=== PATIENT | male | born 1975 | race Two or more races ===

== ENCOUNTER → 2020-07-07 | Outpatient (CLI) | payer OTHER | END | disposition home or self-care (01) | LOC: LAB 16:53 | PROVIDERS: ATTEND Physician Assistant | DX: Z20.828 Contact with and (suspected) exposure to other viral communicable diseases (principal) | CPT/HCPCS: C9803; U0003 ==

== ENCOUNTER 2023-06-04 22:04 | Emergency (ER) | payer OTHER ==
[~2023-06-04] VITALS: Ht 167.6 cm; Wt 104.5 kg
[2023-06-05] MEDS ORDERED: PRED20TA2 PO (00:06)
[2023-06-05] MEDS ORDERED: AMOX875T4 PO (00:06)
[2023-06-05 00:15] VITALS: BP 151/99; PULSE 89; RESP 15; TEMP 98; O2SAT 95
[2023-06-05] MEDS ORDERED: cefTRIAXone SOD 1,000 MG VL IM ONE (00:15)
[2023-06-05] MEDS ORDERED: DexAMETHasone SOD PHOS 10MG/1ML VIAL INJ IM ONE (00:15)
== END 2023-06-05 00:36 | disposition home or self-care (01) ==
LOC: ER 22:04
DX: J06.9 Acute upper respiratory infection, unspecified (principal)
CPT/HCPCS: 71045; 96372; 99284; J0696; J1100

== ENCOUNTER 2023-10-30 20:40 | Emergency (ER) | payer OTHER ==
[~2023-10-30] VITALS: Ht 167.6 cm; Wt 104.0 kg
[2023-10-30 20:40] VITALS: BP 151/100; PULSE 103; RESP 20; O2SAT 99
[~2023-10-30 20:40] MED LIST: AMOX875T4 PO; PRED20TA2 PO
[2023-10-30] MEDS: FAMOTIDINE (10MG/ML) 2ML VL IV ONE (21:12)
[2023-10-30] MEDS: methylPREDNISolone SOD SUCC 125 MG/2 ML VL IV ONE (21:12)
== END 2023-10-30 23:13 | disposition left against medical advice (07) ==
LOC: ER 20:40
DX: T78.49XA Other allergy, initial encounter (principal); Z53.21 Procedure and treatment not carried out due to patient leaving prior to being seen by health care provider; X58.XXXA Exposure to other specified factors, initial encounter
CPT/HCPCS: 96374; 96375; 99281; J2930; J3490

== ENCOUNTER 2023-11-18 21:08 | Emergency (ER) | payer OTHER ==
[~2023-11-18] VITALS: Ht 167.6 cm; Wt 104.5 kg
[2023-11-18] MEDS: diphenhdrAMINE HCL 50 MG/1 ML VL IV ONE (21:47)
[2023-11-18] MEDS: FAMOTIDINE (10MG/ML) 2ML VL IV ONE (21:48)
[2023-11-18] MEDS: DexAMETHasone SOD PHOS 10MG/1ML VIAL INJ IV ONE (21:48)
[2023-11-18] MEDS: EPINEPHrine HCL 1 MG/1 ML AMP IM ONE (21:50)
[2023-11-18] MEDS ORDERED: EPIN0.1I11 IJ (23:28)
[2023-11-18 23:43] VITALS: BP 126/79; PULSE 96; RESP 16; TEMP 98.7; O2SAT 95
== END 2023-11-18 23:47 | disposition home or self-care (01) ==
LOC: ER 21:08
DX: T78.49XA Other allergy, initial encounter (principal); Z79.899 Other long term (current) drug therapy; X58.XXXA Exposure to other specified factors, initial encounter
CPT/HCPCS: 96372; 96374; 96375; 99284; J0171; J1100; J1200; J3490

== ENCOUNTER 2023-11-21 19:28 | Emergency (ER) | payer OTHER ==
[~2023-11-21] VITALS: Ht 167.6 cm; Wt 109.4 kg
[~2023-11-21 19:28] MED LIST changes: +EPIN0.1I11 IJ
[2023-11-21 20:23] LABS: Basophils # (auto) 0.1 10 ^3/uL (0-0.2); Eosinophils # (auto) 0.1 10 ^3/uL (0-0.8); Eosinophils % (auto) 1.3 % (0.0-7.0); Hematocrit 46.3 % (41.0-53.0); Hemoglobin 15.8 g/dL (13.5-17.5); Lymphocytes % (auto) 28.1 % (10.0-50.0); Mean Corpuscular Hemoglobin 28.6 pg (28.0-32.0); Mean Corpuscular Hgb Conc. 34.1 g/dL (32.0-36.0); Mean Corpuscular Volume 83.8 fL (80.0-100.0); Monocytes # (auto) 0.6 10 ^3/uL (0-1.3); Monocytes % (auto) 8.7 % (0.0-12.0); Neutrophils # (auto) 4.3 10 ^3/uL (1.6-8.6); Neutrophils % (auto) 60.9 % (37.0-80.0); Nucleated Red Blood Cells % 0.1 %; Red Blood Cells 5.52 10^6/uL (4.5-5.90); Red Cell Distribution Width 14.1 % (11.8-14.3); White Blood Cell 7.1 10^3/uL (4.4-10.8)
[2023-11-21 20:40] LABS: Alanine Aminotransferase 33 U/L (7-40); Albumin 4.2 g/dL (3.2-4.8); Alkaline Phosphatase 87 U/L (46-116); Anion Gap 6 (5-15); Aspartate Aminotransferase 15 U/L (13-40); BUN/Creatinine Ratio 12.4 (10.0-20.0); Bilirubin, Total 0.5 mg/dL (0.2-1.0); Blood Urea Nitrogen 12 mg/dL (9-23); Calcium 9.3 mg/dL (8.7-10.4); Carbon Dioxide 27 mmol/L (20-30); Chloride 105 mmol/L (98-107); Glucose 173 mg/dL (74-106); Lipase 36 U/L (12-53); Potassium 3.5 mmol/L (3.5-5.1); Sodium 138 mmol/L (136-145); Total Protein 6.6 g/dL (5.7-8.2)
[2023-11-22 00:20] VITALS: BP 152/93; PULSE 81; RESP 16; TEMP 98.2; O2SAT 97
== END 2023-11-22 00:24 | disposition home or self-care (01) ==
LOC: ER 19:28
DX: K92.2 Gastrointestinal hemorrhage, unspecified (principal); Z79.2 Long term (current) use of antibiotics; Z79.899 Other long term (current) drug therapy; Z91.018 Allergy to other foods
CPT/HCPCS: 36415; 74176; 80053; 83690; 85025; 86850; 86900; 86901

== ENCOUNTER 2024-01-05 16:45 | Emergency (ER) | payer OTHER ==
[~2024-01-05] VITALS: Ht 167.6 cm; Wt 90.0 kg
[2024-01-05 17:50] LABS: Basophils # (auto) 0.1 10 ^3/uL (0-0.2); Basophils % (auto) 1.3 % (0.0-2.0); Eosinophils # (auto) 0.1 10 ^3/uL (0-0.8); Eosinophils % (auto) 2.6 % (0.0-7.0); Hematocrit 43.8 % (41.0-53.0); Hemoglobin 15.1 g/dL (13.5-17.5); Lymphocytes # (auto) 1.3 10 ^3/uL (0.4-5.4); Mean Corpuscular Hgb Conc. 34.5 g/dL (32.0-36.0); Mean Corpuscular Volume 84.2 fL (80.0-100.0); Monocytes # (auto) 0.4 10 ^3/uL (0-1.3); Monocytes % (auto) 9.5 % (0.0-12.0); Neutrophils # (auto) 2.4 10 ^3/uL (1.6-8.6); Neutrophils % (auto) 55.6 % (37.0-80.0); Nucleated Red Blood Cells % 0.2 %; Red Cell Distribution Width 13.9 % (11.8-14.3); White Blood Cell 4.3 10^3/uL (4.4-10.8)
[2024-01-05 18:06] VITALS: PULSE 84; RESP 16; O2SAT 98
[2024-01-05] MEDS: NITROGLYCERIN 0.4 MG SL TAB SL ONE (18:07)
[2024-01-05 18:17] LABS: Alanine Aminotransferase 33 U/L (7-40); Albumin 4.3 g/dL (3.2-4.8); Alkaline Phosphatase 85 U/L (46-116); Anion Gap 6 (5-15); Aspartate Aminotransferase 15 U/L (13-40); BUN/Creatinine Ratio 12.3 (10.0-20.0); Blood Urea Nitrogen 10 mg/dL (9-23); Calcium 9.6 mg/dL (8.5-10.1); Carbon Dioxide 29 mmol/L (20-30); Chloride 107 mmol/L (98-107); Glucose 101 mg/dL (74-106); Potassium 3.6 mmol/L (3.5-5.1); Sodium 142 mmol/L (136-145)
[2024-01-05 18:18] LABS: Bilirubin, Total 0.5 mg/dL (0.2-1.0); Total Protein 6.5 g/dL (5.7-8.2)
[2024-01-05 18:31] LABS: Urine Bacteria None Seen /hpf (None Seen)
[2024-01-05 18:44] LABS: Urine Blood Negative /uL (Negative); Urine Clarity Clear (Clear); Urine Color Light-Yellow (Yellow); Urine Mucus FEW (None Seen); Urine Protein, UAD Negative (Negative); Urine Specific Gravity 1.016 (1.001-1.035); Urine Urobilinogen Normal (Negative); Urine WBC 1 /hpf (0 - 3); Urine pH 5.5 (5.0-9.0)
[2024-01-05 19:27] VITALS: BP 128/85; PULSE 77; RESP 16; O2SAT 99
[2024-01-05] MEDS ORDERED: ACET500T58 PO (19:33)
[2024-01-05] MEDS ORDERED: IBUP-1455 PO (19:33)
[2024-01-05] MEDS: KETOROLAC TROMETH 60MG/2ML VIAL IM ONE (19:40)
== END 2024-01-05 19:46 | disposition home or self-care (01) ==
LOC: ER 16:45 → EEVIPCON 16:45 → ER 19:46
DX: R07.89 Other chest pain (principal); E66.01 Morbid (severe) obesity due to excess calories; Z68.32 Body mass index [BMI] 32.0-32.9, adult; Z79.899 Other long term (current) drug therapy
CPT/HCPCS: 36415; 71045; 80053; 81001; 83880; 84484; 85025; 85379; 93005; 96372; 99285; J1885

== ENCOUNTER 2024-02-20 16:28 | Emergency (ER) | payer OTHER ==
[~2024-02-20] VITALS: Ht 167.6 cm; Wt 96.3 kg
[~2024-02-20 16:28] MED LIST changes: +ACET500T58 PO; +IBUP-1455 PO
[2024-02-20] MEDS: diphenhdrAMINE HCL 50 MG/1 ML VL IV ONE (17:32)
[2024-02-20] MEDS: DexAMETHasone SOD PHOS 10MG/1ML VIAL INJ IV ONE (17:32)
[2024-02-20] MEDS: EPINEPHrine HCL 1 MG/1 ML AMP SC ONE (17:33)
[2024-02-20 18:17] VITALS: PULSE 81; RESP 16; O2SAT 94
[2024-02-21] MEDS ORDERED: DIPH25CA66 PO (00:49)
[2024-02-21] MEDS: DexAMETHasone SOD PHOS 4 MG/1ML SDV INJ IV ONE (01:07)
[2024-02-21 01:55] VITALS: BP 112/79; PULSE 68; RESP 16; O2SAT 96
== END 2024-02-21 01:29 | disposition home or self-care (01) ==
LOC: ER 16:28
DX: T78.40XA Allergy, unspecified, initial encounter (principal); Z79.1 Long term (current) use of non-steroidal anti-inflammatories (NSAID); Z79.52 Long term (current) use of systemic steroids; Z79.899 Other long term (current) drug therapy; Z91.010 Allergy to peanuts; X58.XXXA Exposure to other specified factors, initial encounter
CPT/HCPCS: 96372; 96374; 96375; 96376; 99284; J0171; J1100; J1200

== ENCOUNTER 2024-06-14 11:04 | Emergency (ER) | payer OTHER ==
[~2024-06-14] VITALS: Ht 167.6 cm; Wt 94.4 kg
[~2024-06-14 11:04] MED LIST changes: +DIPH25CA66 PO
--- NOTE | 2024-06-14 11:52 | ED.PDOC ---
GI ASSESSMENT HPI Comments 48 y.o male presents to the ED for a chief complaint of diffused abdominal pain associated with nausea, dry heaving, and lightheadedness. Patient reports pain is localized towards the upper region of his abdomen, radiates across and to the right side which is where the pain is worse. Pain has been going on for about 4- 5 days ago, was intermittent up until today which progressively worsen and became constant, rating a 8/10 on the pain scale. Patient states he had GI bleed earlier this year, had a colonoscopy done at [facility] and had a polyp removed but was told pain cause was undetermined. Patient was placed on Protonix and had been pain free for the past 3 months up until now, has loose stools but no diarrhea, fever, chills, bloody stool, vomiting, or urinary symptoms. Patient is currently lightheaded due to increased pain now. Chief Complaint: Abdominal Pain Time Seen by MD: 11:43 Primary Care Provider: [facility] Reviewed Notes: Nurses Notes, Medications, Allergies Allergies: Uncoded Allergies: nuts (Allergy, Severe, 02/21/24) Home Meds Active Scripts Diphenhydramine Hcl (Benadryl Allergy) 25 Mg Cap, 2 CAP PO Q6HPRN, #30 CAP 0 Refills Prov:ELZBIETA JENKINS 02/21/24 Prednisone (Prednisone) 20 Mg Tab, 20 MG PO BID for 5 Days, #10 TAB 0 Refills Prov:ELZBIETA JENKINS 02/21/24 Acetaminophen (Acetaminophen) 500 Mg Tab, 500 MG PO Q4HP PRN, #20 TAB Prov:YELENA BUSTILLO PAC 01/05/24 Ibuprofen Micronized (Ibuprofen) 800 Mg Tab, 800 MG PO Q8HP PRN, #20 TAB Prov:YELENA BUSTILLO PAC 01/05/24 Epinephrine (Anaphylaxis) (Auvi-Q) 0.1 Mg/0.1 Ml Inj, 0.1 MG IJ O PRN for 1 Day, #1 INJ Prov:ROSALINDA GARZA DO 11/18/23 Prednisone (Prednisone) 20 Mg Tab, 20 MG PO BID for 5 Days, #10 TAB 0 Refills Prov:ELZBIETA JENKINS 06/05/23 Amoxicillin & Pot Clavulanate (Amoxicillin/Potassium Cla) 875 Mg Tab, 1 TAB PO BID for 7 Days, #14 TAB 0 Refills Prov:ELZBIETA JENKINS 06/05/23 Information Source: Patient Mode of Arrival: Ambulatory Timing: Days (4-5) Duration: Since onset Quality: Sharp Vomitus: None Stool: Loose Severity: Moderate Recent: None Recent Hx of: None Pain Location: Diffuse, Epigastric, RUQ, RLQ Modifying Factors: Nothing Associated sign and symptoms: Nausea, Abdominal Pain Past Medical History Past Medical History (Other): Polyp and diveticulosis Surgical History (Other): colonoscopy Family History Family History: Unknown Social History Smoker: Non-Smoker Alcohol: Occasionally Drugs: Denies Drug Use Lives In: Home Constitutional: denies: chills, diaphoresis, fatigue, fever, malaise, sweats, weakness, others EENTM: denies: blurred vision, double vision, ear bleeding, ear discharge, ear drainage, ear pain, ear ringing, eye pain, eye redness, hearing loss, mouth pain, mouth swelling, nasal discharge, nose bleeding, nose congestion, nose pain, photophobia, tearing, throat pain, throat swelling, voice changes, others Respiratory: denies: cough, hemoptysis, orthopnea, SOB at rest, shortness of breath, SOB with excertion, stridor, wheezing, others Cardiovascular: reports: lightheadedness; denies: chest pain, dizzy spells, diaphoresis, Dyspnea on exertion, edema, irregular heart beat, left arm pain, palpitations, PND, syncope, others Gastrointestinal: reports: abdominal pain, nausea; denies: abdomen distended, blood streaked bowels, constipated, diarrhea, dysphagia, difficulty swallowing, hematemesis, melena, poor appetite, poor fluid intake, rectal bleeding, rectal pain, vomiting, others Genitourinary: denies: burning, dysuria, flank pain, frequency, hematuria, incontinence, penile discharge, penile sore, pain, testicle pain, testicle swelling, urgency, others Neurological: denies: dizziness, fainting, headache, left sided numbness, left sided weakness, numbness, paresthesia, pre-existing deficit, right sided numbness, right sided weakness, seizure, speech problems, tingling, tremors, weakness, others Musculoskeletal: denies: back pain, gout, joint pain, joint swelling, muscle pain, muscle stiffness, neck pain, others Integumetry: denies: bruises, change in color, change in hair/nails, dryness, laceration, lesions, lumps, rash, wounds, others Allergic/Immunocompromised: denies: Difficulty Healing, Frequent Infections, Hives, Itching, others Hematologic/Lymphatic: denies: anemia, blood clots, easy bleeding, easy bruising, swollen glands, others Endocrine: denies: excessive hunger, excessive sweating, excessive thirst, excessive urination, flushing, intolerance to cold, intolerance to heat, unexplained weight gain, unexplained weight loss, others Psychiatric: denies: anxiety, bipolar disorder, depression, hopeless, panic disorder, schizophrenia, sleepless, suicidal, others All Other Systems: Reviewed and Negative Physical Exam General Appearance: Moderate Distress HEENT: Normal ENT Inspection, Pharynx Normal, TMs Normal Neck: Full Range of Motion, Non-Tender, Normal, Normal Inspection Respiratory: Chest Non-Tender, Lungs Clear, No Accessory Muscle Use, No Respiratory Distress, Normal Breath Sounds Cardiovascular: No Edema, No JVD, No Murmur, No Gallop, Normal Peripheral Pulses, Regular Rate/Rhythm Breast Exam: Deferred Gastrointestinal: Diffuse, No Organomegaly, No Pulsatile Mass, Normal Bowel Sounds, Soft, Tenderness Genitalia: Deferred Pelvic: Deferred Rectal: Deferred Extremities: No calf tenderness, Normal capillary refill, Normal inspection, Normal range of motion, Non-tender, No pedal edema Musculoskeletal : Apperance: Normal Neurologic: Alert, dough mixer helper II-XII nml as Tested, Motor Weakness, Normal Affect, Normal Mood, No Sensory Deficits Cerebellar Function: Normal Reflexes: Normal Skin: Dry, Normal Color, Warm Lymphatic: No Adenopathy Was a procedure done? Was a procedure done?: No GI differential Dx Differential Diagnosis: Diverticular disease, Gastritis/PUD, Gastroenteritis, Inflammatory BD, Ischemic Bowel, Anemia, Esophageal Varicies X-Ray, Labs, Meds, VS Vital Signs Date Time Temp Pulse Resp B/P (MAP) Pulse Ox O2 Delivery O2 Flow Rate FiO2 06/14/24 12:16 75 17 129/81 06/14/24 11:42 103 18 99 Room Air 06/14/24 11:42 104 18 133/95 (108) 99 06/14/24 11:22 98.3 95 18 131/92 (105) 96 Lab Test 06/14/24 12:00 Range/Units White Blood Count 5.9 4.4-10.8 10^3/uL Red Blood Count 5.60 4.5-5.90 10^6/uL Hemoglobin 16.9 13.5-17.5 g/dL Hematocrit 47.6 41.0-53.0 % Mean Corpuscular Volume 85.1 80.0-100.0 fL Mean Corpuscular Hemoglobin 30.2 28.0-32.0 pg Mean Corpuscular Hemoglobin Concent 35.5 32.0-36.0 g/dL Red Cell Distribution Width 13.0 11.8-14.3 % Platelet Count 215 140-450 10^3/uL Mean Platelet Volume 8.5 6.9-10.8 fL Neutrophils (%) (Auto) 73.6 37.0-80.0 % Lymphocytes (%) (Auto) 17.6 10.0-50.0 % Monocytes (%) (Auto) 7.7 0.0-12.0 % Eosinophils (%) (Auto) 0.8 0.0-7.0 % Basophils (%) (Auto) 0.3 0.0-2.0 % Neutrophils # (Auto) 4.3 1.6-8.6 10 ^3/uL Lymphocytes # (Auto) 1.0 0.4-5.4 10 ^3/uL Monocytes # (Auto) 0.5 0-1.3 10 ^3/uL Eosinophils # (Auto) 0 0-0.8 10 ^3/uL Basophils # (Auto) 0 0-0.2 10 ^3/uL Nucleated Red Blood Cells 0.2 % Sodium Level 142 136-145 mmol/L Potassium Level 3.9 3.5-5.1 mmol/L Chloride Level 106 98-107 mmol/L Carbon Dioxide Level 26 20-31 mmol/L Anion Gap 10 5-15 Blood Urea Nitrogen 11 9-23 mg/dL Creatinine 1.08 0.700-1.30 mg/dL Glomerular Filtration Rate Calc 84 >90 mL/min BUN/Creatinine Ratio 10.2 10.0-20.0 Serum Glucose 112 H 74-106 mg/dL Calcium Level 10.1 8.7-10.4 mg/dL Total Bilirubin 0.7 0.2-1.0 mg/dL Aspartate Amino Transferase (AST) 21 13-40 U/L Alanine Aminotransferase (ALT) 44 H 7-40 U/L Alkaline Phosphatase 92 46-116 U/L Total Protein 7.5 5.7-8.2 g/dL Albumin 4.5 3.2-4.8 g/dL Lipase 34 12-53 U/L Current Medications Medications (Trade) Dose Ordered Sig/Jessica Route Start Time Stop Time Status Last Admin Morphine Sulfate 4 mg ONCE ONCE IV 06/14/24 12:00 06/14/24 12:01 DC 06/14/24 12:16 Sodium Chloride 500 ml @ 500 mls/hr Q1H ONCE IVB 06/14/24 12:00 06/14/24 12:59 DC 06/14/24 11:59 Pantoprazole Sodium (Protonix) 40 mg ONCE ONCE IV 06/14/24 12:00 06/14/24 12:01 DC 06/14/24 12:15 Prochlorperazine Edisylate (Compazine Inj) 10 mg ONCE ONCE IV 06/14/24 12:00 06/14/24 12:01 DC 06/14/24 12:15 IV Hep-Lock was established The patient was given morphine 4 mg IV push for the pain The patient was given a normal saline bolus at 500 cc The patient was given Protonix 40 mg IV push The patient was given Compazine 10 mg IV push At this time, the patient's CT scan of the abdomen and pelvis shows:IMPRESSION: 1. There is no acute process in the abdomen and pelvis. 2. Distal colon diverticulosis without evidence of acute diverticulitis. 3. Mild prostatomegaly. 4. Fat containing umbilical hernia. The patient continues to have pain We contacted [facility] and they accepted the patient to be transferred to their facility The authorization #[id number] Images Reviewed?: Images reviewed and evaluated by me Time of 1ST Reevaluation: 11:52 Reevaluation 1ST: Unchanged Patient Education/Counseling: Diagnosis, Treatment, Prognosis Family Education/Counseling: No Family Present Departure 1 Departure Time of Disposition: 14:01 Impression: Primary Impression: Intractable abdominal pain Disposition: 51 HOSPICE/MEDICAL FACILITY Condition: Fair Critical Care Note Critical Care Time?: No Stability Stability form required: Yes Stable for transfer: Intended for transfer, To designated facility I personally scribed for DAYANNA ARMAS MD ([email or web address]) on 06/14/24 at 11:52. Electronically submitted by Radha Antonio ([facility]). I personally scribed for DAYANNA ARMAS MD ([email or web address]) on 06/14/24 at 12:36. Electronically submitted by Radha Antonio ([facility]). DAYANNA ARMAS MD Jun 14, 2024 11:52
[2024-06-14] MEDS: SODIUM CHLORIDE 0.9% 500 ML IVB ONE (11:59)
[2024-06-14] MEDS: PROCHLORPERAZINE EDISYLATE 5 MG/ML 2ML VIAL IV ONE (12:15)
[2024-06-14] MEDS: PANTOPRAZOLE 40 MG/10 ML VIAL INJ IV ONE (12:15)
[2024-06-14] MEDS: MORPHINE SULFATE 4 MG/ML SYR/VIAL IV ONE (12:16)
--- NOTE | 2024-06-14 12:32 | DVH ---
CT ABDOMEN AND PELVIS WITHOUT CONTRAST CLINICAL HISTORY: pain TECHNIQUE: Multiple contiguous axial images of the abdomen and pelvis without intravenous contrast. The images were reformatted degenerate coronal and sagittal reconstructions. All CT scans at this medical facility are performed using dose modulation techniques as appropriate t o a performed exam including the following:Automated exposure control was utilized; adjustment of the MA and/or KV according to patient size; and use of iterative reconstruction technique. Radiation Dose Information: CT Dose: CTDI volume is 18.43 mGy. Dose-length product is 867.83 mGy*cm Comparison: CT CT AB PEL WO CON-NO ORAL OR IV on DOS: 11/21/23 FINDINGS: Evaluation of the abdomen and pelvis is limited without intravenous contrast. There is a 1.9 cm cyst in the left hepatic lobe. The gallbladder, pancreas, kidneys, adrenal glands, and spleen appear within normal limits. There is no gross evidence of abdominal lymphadenopathy. There is no free fluid or free air. The small and large bowel loops demonstrate normal caliber. There are multiple diverticula in the di stal colon without evidence of acute diverticulitis. The abdominal aorta and IVC appear within normal limits. There is mild prostatomegaly. Bladder is poorly filled limiting evaluation. There is no evidence of a pelvic mass or lymphadenopathy. There is no free fluid collection. Lung bases are clear. There is a fat containing umbilical hernia with a neck measuring 1.8 cm in transverse diameter. There is no acute osseous abnormality. IMPRESSION: 1. There is no acute process in the abdomen and pelvis. 2. Distal colon diverticulosis without evidence of acute diverticulitis. 3. Mild prostatomegaly. 4. Fat containing umbilical hernia. HS:Y
[2024-06-14 12:53] LABS: Alanine Aminotransferase 44 U/L (7-40); Albumin 4.5 g/dL (3.2-4.8); Alkaline Phosphatase 92 U/L (46-116); Anion Gap 10 (5-15); Aspartate Aminotransferase 21 U/L (13-40); BUN/Creatinine Ratio 10.2 (10.0-20.0); Blood Urea Nitrogen 11 mg/dL (9-23); Calcium 10.1 mg/dL (8.7-10.4); Carbon Dioxide 26 mmol/L (20-31); Chloride 106 mmol/L (98-107); Glucose 112 mg/dL (74-106); Potassium 3.9 mmol/L (3.5-5.1); Sodium 142 mmol/L (136-145)
[2024-06-14 12:54] LABS: Bilirubin, Total 0.7 mg/dL (0.2-1.0); Total Protein 7.5 g/dL (5.7-8.2)
[2024-06-14 12:55] LABS: Basophils # (auto) 0 10 ^3/uL (0-0.2); Basophils % (auto) 0.3 % (0.0-2.0); Eosinophils # (auto) 0 10 ^3/uL (0-0.8); Eosinophils % (auto) 0.8 % (0.0-7.0); Hematocrit 47.6 % (41.0-53.0); Hemoglobin 16.9 g/dL (13.5-17.5); Lymphocytes % (auto) 17.6 % (10.0-50.0); Mean Corpuscular Hemoglobin 30.2 pg (28.0-32.0); Mean Corpuscular Hgb Conc. 35.5 g/dL (32.0-36.0); Mean Corpuscular Volume 85.1 fL (80.0-100.0); Monocytes # (auto) 0.5 10 ^3/uL (0-1.3); Monocytes % (auto) 7.7 % (0.0-12.0); Neutrophils # (auto) 4.3 10 ^3/uL (1.6-8.6); Neutrophils % (auto) 73.6 % (37.0-80.0); Nucleated Red Blood Cells % 0.2 %; Platelet Count (auto) 215 10^3/uL (140-450); White Blood Cell 5.9 10^3/uL (4.4-10.8)
[2024-06-14 13:10] LABS: Lipase 34 U/L (12-53)
[2024-06-14 15:15] VITALS: PULSE 96; RESP 16; O2SAT 96
[2024-06-14 15:29] VITALS: TEMP 97.9; O2SAT 96
[2024-06-14 15:37] VITALS: BP 123/86; PULSE 96; RESP 16
== END 2024-06-14 15:07 | disposition short-term general hospital (02) ==
LOC: ER 11:04
DX: R10.84 Generalized abdominal pain (principal); Z88.8 Allergy status to other drugs, medicaments and biological substances; Z79.899 Other long term (current) drug therapy; Z98.890 Other specified postprocedural states
CPT/HCPCS: 36415; 74176; 80053; 83690; 85025; 96361; 96374; 96375; 99285; J0780; J2270; J2470; J7040